=== PATIENT | female | born 1945 | race Caucasian/White ===

== ENCOUNTER 2020-10-22 14:48 | Emergency (ER) | payer MEDICARE, BC ==
[~2020-10-22] VITALS: Ht 157.5 cm; Wt 54.4 kg
[2020-10-22 14:51] VITALS: BP 132/81
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
--- NOTE | 2020-10-22 15:25 | NUR ---
[facility] .
[2020-10-22] MEDS ORDERED: ACETAMINOPHEN ES 500 MG TABLET PO ONE (16:00)
--- NOTE | 2020-10-22 16:15 | NUR ---
Patient discharged to home in stable condition. Written and verbal after care instructions given. Patient verbalizes understanding of instruction.
[2020-10-22] MEDS ORDERED: ACETAMINOPHEN ES 500 MG TABLET ONE (16:22)
== END 2020-10-22 16:27 | disposition home or self-care (01) ==
LOC: ER 14:52
DX: R06.4 Hyperventilation (principal); F43.9 Reaction to severe stress, unspecified